=== PATIENT | male | born 1975 | race Two or more races ===

== ENCOUNTER 2020-01-03 12:22 | Emergency (ER) | payer OTHER ==
[~2020-01-03] VITALS: Ht 180.3 cm; Wt 77.1 kg
[~2020-01-03 12:22] MED LIST: INSU100V10 SQ; NOVOLOG
[2020-01-03 12:25] VITALS: BP 134/108
[2020-01-03] MEDS ORDERED: LIDOCAINE 1%-EPI 1:100,000 20 ML VIAL ONE (12:33)
--- NOTE | 2020-01-03 12:40 | NUR ---
SUTURING DONE BY .
--- NOTE | 2020-01-03 12:51 | NUR ---
Patient discharged to home in stable condition. Written and verbal after care instructions given. Patient verbalizes understanding of instruction.
== END 2020-01-03 12:52 | disposition home or self-care (01) ==
LOC: ER 12:26
DX: S01.81XA Laceration without foreign body of other part of head, initial encounter (principal); E10.9 Type 1 diabetes mellitus without complications; Z88.0 Allergy status to penicillin; Z79.4 Long term (current) use of insulin; W01.0XXA Fall on same level from slipping, tripping and stumbling without subsequent striking against object, initial encounter; Y93.89 Activity, other specified; Y92.89 Other specified places as the place of occurrence of the external cause; Y99.8 Other external cause status
CPT/HCPCS: 12013; 99282; A6403; J3490

== ENCOUNTER 2020-01-08 12:26 | Emergency (ER) | payer OTHER ==
[~2020-01-08] VITALS: Ht 180.3 cm; Wt 77.1 kg
[2020-01-08 12:52] VITALS: BP 125/85
--- NOTE | 2020-01-08 13:31 | NUR ---
Patient discharged to home in stable condition. Written and verbal after care instructions given. Patient verbalizes understanding of instruction. Pt ambulatory with a steady gait
== END 2020-01-08 13:33 | disposition home or self-care (01) ==
LOC: ER 12:26
DX: S01.81XD Laceration without foreign body of other part of head, subsequent encounter (principal); E10.9 Type 1 diabetes mellitus without complications; Z88.0 Allergy status to penicillin; Z79.4 Long term (current) use of insulin; W19.XXXD Unspecified fall, subsequent encounter